=== PATIENT | female | born 1960 | race Caucasian/White ===

== ENCOUNTER 2017-08-18 20:09 | Emergency (ER) | payer OTHER ==
[~2017-08-18] VITALS: Ht 167.6 cm; Wt 98.0 kg
[~2017-08-18 20:09] MED LIST: AMIT10TA6 PO; ATEN25TA PO; DULO30CA2 PO; GLYB5TAB7 PO; HYDR-3326 PO; LEVO112T5 PO; LISI-607 PO; ONDA4TAB5 PO; PANT40SU PO
[2017-08-18 20:29] VITALS: BP 146/76
--- NOTE | 2017-08-18 21:26 | NUR ---
RADIOLOGY AT BEDSIDE FOR R KNEE XRAY.
[2017-08-18] MEDS ORDERED: HYDROCODONE/APAP 10/325MG 1 EA TABLET ONE (21:36)
[2017-08-18] MEDS ORDERED: HYDROCODONE/APAP 10/325MG 1 EA TABLET PO ONE (22:00)
--- NOTE | 2017-08-18 23:10 | NUR ---
PILY BANDAGE APPLIED. PT D/C HOME IN STABLE CONDITION.
== END 2017-08-18 23:13 | disposition home or self-care (01) ==
LOC: ER 20:13
DX: M25.561 Pain in right knee (principal); E11.9 Type 2 diabetes mellitus without complications; I10 Essential (primary) hypertension; Z98.890 Other specified postprocedural states; Z88.6 Allergy status to analgesic agent; Z88.8 Allergy status to other drugs, medicaments and biological substances
CPT/HCPCS: 73564; 99284; A4606; Z7610

== ENCOUNTER 2018-05-16 18:00 | Emergency (ER) | payer OTHER ==
[~2018-05-16] VITALS: Ht 167.6 cm; Wt 95.3 kg
[~2018-05-16 18:00] MED LIST changes: -HYDR-3326 PO; +HYDR-3974 PO
[2018-05-16 18:03] VITALS: BP 116/72
--- NOTE | 2018-05-16 18:11 | NUR ---
TK FROM HOME CC OF LEFT EAR PRESSURE THIS AM , WITH DIFFICULTY OF HEARING , AOX4 , VSS STABLE , NO ACUTE DISTRESS OR SOB AT THIS TIME . DENIES VERTIGO , NAUSEA AND VOMITING , WILL CONTINUE TO MONITOR
--- NOTE | 2018-05-16 18:25 | NUR ---
ANDIE JESSICA AT BEDSIDE EVALUATING THE PATIENT
[2018-05-16] MEDS ORDERED: DOCUSATE SODIUM LIQ 100 MG/10 ML UDC ONE (18:35)
[2018-05-16] MEDS ORDERED: DOCUSATE SODIUM LIQ 100 MG/10 ML UDC XX ONE (19:00)
== END 2018-05-16 19:52 | disposition home or self-care (01) ==
LOC: ER 18:02
DX: H61.23 Impacted cerumen, bilateral (principal); J34.89 Other specified disorders of nose and nasal sinuses; Z88.6 Allergy status to analgesic agent; Z88.8 Allergy status to other drugs, medicaments and biological substances; E11.9 Type 2 diabetes mellitus without complications; I10 Essential (primary) hypertension
CPT/HCPCS: 69209; 99283; A4606; Z7610

== ENCOUNTER 2018-08-13 09:56 | Inpatient (IN) | payer OTHER ==
[~2018-08-13] VITALS: Ht 160 cm; Wt 94.8 kg
--- NOTE | 2018-08-13 10:05 | NUR ---
PRESENTS TO ER C/O CHEST PALPITATIONS X 1 WEEK, WORSENING THIS AM AROUND 0800. STATING SHE BECAME DIAPHORETIC WITH MILD CHEST DISCOMFORT. PATIENT IS A/OX 4 AT THIS TIME. BREATHING EVEN AND UNLABORED. NO SOB, NAD, VITALS STABLE. SAFETY AND COMFORT MEASURES IN PLACE. AWAITING MD ORDERS.
--- NOTE | 2018-08-13 10:10 | NUR ---
NEW IV STARTED ON RAC, 18G. BLOOD DRAWN AND SENT TO LAB.
[2018-08-13 10:29] LABS: RED BLOOD CELL COUNT(AUTO) 4.55 MIL/uL (4.0-5.2)
[2018-08-13 10:32] LABS: BASOPHILS % (AUTO) 0.4 % (0.0-2.0); HEMATOCRIT 38 % (33-45); HEMOGLOBIN 12.5 g/dL (11.5-14.8); LYMPHOCYTES # (AUTO) 2.1 /CMM (0.8-4.8); LYMPHOCYTES % (AUTO) 23.6 % (20.0-44.0); MEAN CORPUSCULAR HGB CONC 33 g/dl (31.0-36.0); MEAN CORPUSCULAR VOLUME 83 fL (82-100); MONOCYTES # (AUTO) 0.5 /CMM (0.1-1.30); MONOCYTES % (AUTO) 5.5 % (2.0-12.0); NEUTROPHILS # (AUTO) 5.9 /CMM (1.8-8.9); NEUTROPHILS % (AUTO) 67.5 % (43.0-81.0); PLATELET COUNT (AUTO) 348 /CMM (150-450); RDW COEFFICIENT OF VARIATION 12.8 (11.5-15.0); WHITE BLOOD COUNT (AUTO) 8.8 K/uL (4.3-11.0)
[2018-08-13 10:34] LABS: CALCIUM, SERUM 7.2 mg/dL (8.5-10.1); CARBON DIOXIDE 32 mmol/L (21-32); CHLORIDE 99 mmol/L (98-107); CREATININE 0.7 mg/dL (0.6-1.3); GLUCOSE 255 mg/dL (74-106); POTASSIUM 3.9 mmol/L (3.5-5.1); SODIUM SERUM 138 mmol/L (136-145); UREA NITROGEN, BLOOD 17 mg/dL (7-18)
[2018-08-13 10:41] LABS: ALANINE AMINOTRANSFERASE 22 U/L (12-78); ALBUMIN 3.9 g/dL (3.4-5.0); ALKALINE PHOSPHATASE 66 U/L (46-116); ASPARTATE AMINOTRANSFERASE 12 U/L (15-37); BILIRUBIN,TOTAL 0.3 mg/dL (0.2-1.0); TOTAL PROTEIN, SERUM 7.3 g/dL (6.4-8.2)
[2018-08-13 10:42] LABS: TROPONIN I < 0.017 ng/mL (0.00-0.056)
[2018-08-13] MEDS ORDERED: ASPIRIN 81 MG TAB.CHEW PO ONE (11:00)
[2018-08-13] MEDS ORDERED: ASPIRIN EC 81 MG TABLET.DR PO ONE (11:01)
[2018-08-13] MEDS ORDERED: AMLO-333 PO (12:21)
[2018-08-13] MEDS ORDERED: INSU100V11 SQ (12:21)
[2018-08-13] MEDS ORDERED: LEVO125T8 PO (12:21)
[2018-08-13] MEDS ORDERED: INSU100I24 SQ (12:21)
[2018-08-13] MEDS ORDERED: HYDR-548 PO (12:21)
[2018-08-13] MEDS ORDERED: GLYB6TAB3 PO (12:21)
[2018-08-13] MEDS ORDERED: AMPH10TA4 PO (12:21)
[2018-08-13] MEDS ORDERED: ASPI-1152 PO (12:21)
--- NOTE | 2018-08-13 12:21 | NUR ---
PT IS ASSIGEND TO [facility] RM#: [id number], DX: CHEST PAIN, AND ACCEPTING: CESAR HANLEY DNP
--- NOTE | 2018-08-13 13:55 | NUR ---
REPORT CALLED TO SOON (CHARGE NURSE0 FOR MONA GOING TO ROOM 110
--- NOTE | 2018-08-13 14:36 | NUR ---
PATIENT TRANSPORTED TO 110 VIA ACLS PROTOCOL. RNANNA TO PROVIDE MONA.
[2018-08-13 14:45] VITALS: BP 113/68
--- NOTE | 2018-08-13 14:45 | NUR ---
COMPUTER SECURITY COORDINATOR NOTE: RECEIVED PATIENT TO ROOM 112-1 AND PATIENT WAS AWAKE, ALERT AND VERBALLY RESPONSIVE. RESPIRATION IS EVEN AND UNLABORED SATURATING 95% IN ROOM AIR. PER PATIENT, SHE HAS (L) CHEST PAIN RADIATING TO HER ABDOMINAL AREA. PATIENT'S DESCRIBED THE PAIN SQUEEZING PAIN 5/10. ON MAGNETIC TESTING TECHNICIAN, SR HR= 71. PATIENT SAID THAT IT IS TOLERABLE PAIN AT THIS TIME. SHE WAS VERBALIZING THAT SHE IS HUNGRY AND LAST MEAL WAS THIS 1200. PATIENT WALKED TO THE BED NOTED WITH STEADY GAIT, SEATED UPRIGHT ON THE BED AND COMPLETE BODY ASSESSMENT WAS DONE. (R) AC 18G WAS IN PLACED, FLUSHED WITH 5ML NS INTACT AND PATENT. BED IN LOW POSITION AND LOCKED AT ALL TIMES. CALL LIGHT WITHIN REACH. NEEDS ANTICIPATED. VITAL SIGN TAKEN. PAGED CESAR HANLEY NP FOR ADMITTING ORDERS AND AWAITING FOR ORDERS.
--- NOTE | 2018-08-13 15:30 | NUR ---
BRAKE TESTER NOTE: PAGED CESAR HANLEY, EARTH AUGER OPERATOR AGAIN TO FOLLOW-UP WITH ADMITTING ORDERS. PER EARTH AUGER OPERATOR, HE WILL PUT IN THE ORDERS. PATIENT MADE AWARE.
[2018-08-13 16:00] VITALS: BP 125/69
--- NOTE | 2018-08-13 17:00 | NUR ---
SEQUINS STRINGER NOTE: CESAR HANLEY, SHEET HANGER WAS PAGED AGAIN FOR ADMITTING ORDERS, PATIENT WAS GETTING FRUSTRATED. PER SHEET HANGER, OK TO HAVE A DIABETIC DIET AND ACCUCHECK ACHS WITH MILD SLIDING SCALE REGULAR INSULIN. ORDER, NOTED AND CARRIED OUT. PATIENT MADE AWARE. AWAITING FOR THE REST OF THE OTHER MD ORDERS.
[2018-08-13] MEDS ORDERED: DEXTROSE 50%-WATER 50 ML DISP.SYRIN IV PRN ×2 (17:30→18:00)
[2018-08-13] MEDS: BLOOD SUGAR DIAGNOSTIC 1 EACH STRIP IN SCH ×2 (17:45→21:30)
[2018-08-13] MEDS ORDERED: INSULIN REGULAR, HUMAN 100 UNIT/ML 3 ML VIAL SQ PRN (18:00)
[2018-08-13] MEDS: INSULIN REGULAR, HUMAN 100 UNIT/ML 3 ML VIAL SQ PRN ×2 (18:00→21:42)
[2018-08-13] MEDS ORDERED: BLOOD SUGAR DIAGNOSTIC 1 EACH STRIP IN SCH (18:00)
[2018-08-13] MEDS ORDERED: Z GUARD REMEDY 2 OZ OINT TP PRN (18:30)
[2018-08-13] MEDS ORDERED: ACETAMINOPHEN 325 MG TABLET PO PRN (18:30)
[2018-08-13] MEDS ORDERED: ONDANSETRON HCL/PF 4 MG/2 ML VIAL IVP PRN (18:30)
[2018-08-13] MEDS ORDERED: ENOXAPARIN SODIUM 40 MG/0.4 ML DISP.SYRIN SQ SCH (18:30)
[2018-08-13] MEDS ORDERED: ZOLPIDEM TARTRATE 5 MG TABLET PO PRN (18:30)
--- NOTE | 2018-08-13 19:30 | NUR ---
NAILING MACHINE OPERATOR OPENING NOTES PATIENT AWAKE, ALERT AND ORIENTED X3. RESPIRATION IS EVEN AND UNLABORED,PT ON ROOM AIR. ON POLLS OR SURVEYS INTERVIEWER, SR HR= 64. RAC 18G IN PLACED, FLUSHING WELL , INTACT AND PATENT. PT COMPLAINS OF BURNING SENSATION IN HER THROAT THAT STARTED AFTER SHE GOT LOVENOX AT 1800 AND VERY ANXIOUS . WILL TEXT TO CESAR. BED IN LOW POSITION AND LOCKED AT ALL TIMES. CALL LIGHT WITHIN REACH. WILL CONTINUE TO MONITOR .
--- NOTE | 2018-08-13 19:45 | NUR ---
ASSOCIATE MEDIA PLANNER NOTE: PATIENT ON STABLE CONDITION. REPORT GIVEN TO PM SHIFT NURSE FOR CONTINUITY OF CARE.
[2018-08-13 20:00] VITALS: BP 146/53
--- NOTE | 2018-08-13 20:33 | NUR ---
ORDER FOR BENADRYL IV 50 MG ONCE PER CESAR HANLEY WAS RECEIVED.
[2018-08-13] MEDS: HYDROCODONE/APAP 10/325MG 1 EA TABLET PO PRN (20:46)
[2018-08-13] MEDS ORDERED: diphenhydrAMINE HCL 50 MG/ML VIAL IV ONE (21:30)
[2018-08-13] MEDS ORDERED: AMITRIPTYLINE HCL 10 MG TABLET PO SCH (22:00)
[2018-08-14] VITALS: BP 135/71
[2018-08-14 04:00] VITALS: BP 133/66
[2018-08-14 05:50] LABS: BASOPHILS % (AUTO) 0.3 % (0.0-2.0); EOSINOPHILS % (AUTO) 2.9 % (0.0-6.0); HEMATOCRIT 37 % (33-45); LYMPHOCYTES # (AUTO) 2.4 /CMM (0.8-4.8); LYMPHOCYTES % (AUTO) 25.9 % (20.0-44.0); MEAN CORPUSCULAR HGB CONC 33 g/dl (31.0-36.0); MEAN CORPUSCULAR VOLUME 85 fL (82-100); MONOCYTES # (AUTO) 0.5 /CMM (0.1-1.30); MONOCYTES % (AUTO) 5.7 % (2.0-12.0); NEUTROPHILS % (AUTO) 65.2 % (43.0-81.0); PLATELET COUNT (AUTO) 339 /CMM (150-450); RDW COEFFICIENT OF VARIATION 13.4 (11.5-15.0); RED BLOOD CELL COUNT(AUTO) 4.31 MIL/uL (4.0-5.2); WHITE BLOOD COUNT (AUTO) 9.2 K/uL (4.3-11.0)
[2018-08-14 06:08] LABS: ALBUMIN 3.6 g/dL (3.4-5.0); BILIRUBIN,TOTAL 0.4 mg/dL (0.2-1.0); CREATININE 0.7 mg/dL (0.6-1.3); MAGNESIUM 2.1 mg/dL (1.8-2.4); PHOSPHORUS 4.3 mg/dL (2.5-4.9); POTASSIUM 3.9 mmol/L (3.5-5.1); TOTAL PROTEIN, SERUM 7.3 g/dL (6.4-8.2)
[2018-08-14 06:18] LABS: THYROID STIMULATING HORMONE 1.405 uIU/mL (0.358-3.74)
--- NOTE | 2018-08-14 06:57 | NUR ---
SALES AND OPERATIONS TRAINEE CLOSING NOTES PATIENT AWAKE, ALERT AND ORIENTED X3. RESPIRATION IS EVEN AND UNLABORED,PT ON ROOM AIR. ON STORE KEEPER, SR HR= 63. RAC 18G IN PLACE, FLUSHING WELL, INTACT AND PATENT.SAFETY PRECAUTIONS IN PLACE , BED IN LOW POSITION AND LOCKED AT ALL TIMES. CALL LIGHT WITHIN REACH. WILL ENDORSE TO NEXT SHIFT FOR MONA.
[2018-08-14] MEDS ORDERED: LEVOTHYROXINE SODIUM 125 MCG TABLET PO SCH (07:30)
[2018-08-14 08:00] VITALS: BP 113/60
--- NOTE | 2018-08-14 08:00 | NUR ---
HAIR DESIGNER OPENING NOTES RECEIVED PATIENT IN STABLE CONDITION. IN NO APPARENT DISTRESS. BEDSIDE RAILS ARE UPX2. BED IS LOCKED AND LOWERED. CALL LIGHT IS WITHIN REACH. IV LINE IS INTACT AND PATENT. WILL CONTINUE TO MONITOR PATIENT.
[2018-08-14] MEDS: BLOOD SUGAR DIAGNOSTIC 1 EACH STRIP IN SCH ×2 (08:32→12:30)
[2018-08-14] MEDS: INSULIN LISPRO/ASPART 100 UNIT/ML CARTRIDGE SQ SCH ×3 (08:34→12:35)
[2018-08-14] MEDS: INSULIN REGULAR, HUMAN 100 UNIT/ML 3 ML VIAL SQ PRN (08:51)
[2018-08-14] MEDS ORDERED: ASPIRIN EC 81 MG TABLET.DR PO SCH (09:00)
[2018-08-14] MEDS ORDERED: ATENOLOL 25 MG TABLET PO SCH (09:00)
[2018-08-14] MEDS ORDERED: VALSARTAN 80 MG TABLET PO SCH (09:00)
[2018-08-14] MEDS ORDERED: AMLODIPINE BESYLATE 10 MG TABLET PO SCH (09:00)
[2018-08-14] MEDS ORDERED: glyBURIDE 5 MG TABLET PO SCH (09:00)
[2018-08-14] MEDS ORDERED: AMPHET ASP/AMPHET/D-AMPHET 10 MG TABLET PO SCH (09:00)
[2018-08-14] MEDS: HYDROCODONE/APAP 10/325MG 1 EA TABLET PO PRN (09:46)
[2018-08-14] MEDS ORDERED: IOHEXOL-350 100 ML VIAL IV ONE (11:03)
[2018-08-14] MEDS ORDERED: IV NS 0.9% 250 ML IV ONE (11:04)
[2018-08-14 12:00] VITALS: BP 111/63
[2018-08-14] MEDS ORDERED: AMPH10TA4 PO (14:58)
--- NOTE | 2018-08-14 16:00 | NUR ---
MS RN CLOSING NOTES PATIENT DISCHARGED IN STABLE CONDITION. IN NO APPARENT DISTRESS. ALL NEEDS WERE MET. EXITCARE PROVIDED TO THE PATIENT. PRESCRIPTION PROVIDED TO THE PATIENT. ID BAND WAS REMOVED. IV LINE WAS REMOVED. PATIENT ESCORTED OUT OF THE FACILITY BY MERISSA VELEZ. BELONGINGS WERE CHECKED AND WITH PATIENT.
== END 2018-08-14 16:00 | disposition home or self-care (01) | DRG 207 ==
LOC: ER 09:57 → TELE1 13:17 → MEDSG1 08-14 12:19
PROVIDERS: ADMIT Nurse Practitioner Acute Care; ATTEND Nurse Practitioner Acute Care
DX: R00.2 Palpitations (principal); E11.42 Type 2 diabetes mellitus with diabetic polyneuropathy; R07.89 Other chest pain; E11.65 Type 2 diabetes mellitus with hyperglycemia; F41.9 Anxiety disorder, unspecified; E66.01 Morbid (severe) obesity due to excess calories; E03.9 Hypothyroidism, unspecified; E78.5 Hyperlipidemia, unspecified; K21.9 Gastro-esophageal reflux disease without esophagitis; Z68.37 Body mass index [BMI] 37.0-37.9, adult; M79.7 Fibromyalgia; K29.70 Gastritis, unspecified, without bleeding; N71.9 Inflammatory disease of uterus, unspecified; Z98.890 Other specified postprocedural states; Z79.899 Other long term (current) drug therapy; Z79.82 Long term (current) use of aspirin; Z79.4 Long term (current) use of insulin; K57.90 Diverticulosis of intestine, part unspecified, without perforation or abscess without bleeding; Z80.9 Family history of malignant neoplasm, unspecified; Z82.49 Family history of ischemic heart disease and other diseases of the circulatory system; T43.625A Adverse effect of amphetamines, initial encounter; Y92.009 Unspecified place in unspecified non-institutional (private) residence as the place of occurrence of the external cause; I10 Essential (primary) hypertension; G89.4 Chronic pain syndrome; M19.90 Unspecified osteoarthritis, unspecified site; M54.5 Low back pain; F11.90 Opioid use, unspecified, uncomplicated
CPT/HCPCS: 36415; 71045-TC; 75574; 80048-TC; 80053-TC; 80061-TC; 80076-TC; 82962-TC; 83540-TC; 83735-TC; 84100-TC; 84443-TC; 84484-TC; 85025-TC; 87081-TC; 93307-TC; A4606; J1200; J1650; J1815; J7050; Q9967; Z7610

== ENCOUNTER 2019-05-13 12:13 | Emergency (ER) | payer OTHER ==
[~2019-05-13] VITALS: Ht 167.6 cm; Wt 99.8 kg
[~2019-05-13 12:13] MED LIST changes: +AMLO-333 PO; +AMPH10TA4 PO; +ASPI-1152 PO; -DULO30CA2 PO; -GLYB5TAB7 PO; +GLYB6TAB3 PO; -HYDR-3974 PO; +HYDR-4354 PO; +INSU100I24 SQ; +INSU100V11 SQ; -LEVO112T5 PO; +LEVO125T8 PO; -LISI-607 PO
--- NOTE | 2019-05-13 12:25 | NUR ---
CAME IN FOR LOWER BACK PAIN AND L LOWER QUADRANT PAIN x 4 DAYS, ALSO C/O URINARY FREQUENCY AND BURNING SENSATION VAGINAL AREA. TO ER BED 16, HOOKED TO MONITOR, CHANGED TO GOWN, PROVIDED W WARM BLANKET, AWAITING MD AGUILAR.
--- NOTE | 2019-05-13 12:28 | NUR ---
MAURILIO PEREZ AT BEDSIDE
[2019-05-13 12:53] LABS: APPEARANCE,URINE Clear (CLEAR); BILIRUBIN,URINE Negative (NEGATIVE); BLOOD, URINE Negative Ery/uL (NEGATIVE); COLOR,URINE Yellow (YELLOW); KETONES,URINE Negative (NEGATIVE); LEUKOCYTE ESTERASE ,URINE Negative (NEGATIVE); NITRITE, URINE Positive (NEGATIVE); PROTEIN,URINE Negative (NEGATIVE); UGLUCOSE Negative (NEGATIVE); UROBILINOGEN,URINE 0.2 EU/dL (0.2)
[2019-05-13] MEDS ORDERED: PHENAZOPYRIDINE HCL 200 MG TABLET ONE (12:59)
[2019-05-13] MEDS ORDERED: HYDROMORPHONE 1 MG/1 ML DISP.SYRIN ONE (12:59)
[2019-05-13] MEDS ORDERED: ONDANSETRON HCL/PF 4 MG/2 ML VIAL ONE (12:59)
[2019-05-13] MEDS ORDERED: IV NS 0.9% 1,000 ML BAG IV ONE (13:00)
[2019-05-13] MEDS ORDERED: PHENAZOPYRIDINE HCL 200 MG TABLET PO ONE (13:00)
[2019-05-13] MEDS ORDERED: HYDROMORPHONE INJ 2 MG/ML DISP.SYRIN IV ONE (13:00)
[2019-05-13] MEDS ORDERED: ONDANSETRON HCL/PF 4 MG/2 ML VIAL IVP ONE (13:00)
[2019-05-13 13:07] LABS: BACTERIA,URINE Few /HPF (None Seen); RBC,URINE 0-2 /HPF (0-2); SQUAMOUS EPITHELIAL CELL,UR Few /HPF (None Seen); WBC,URINE 0-2 /HPF (0-3)
[2019-05-13 13:10] LABS: BASOPHILS % (AUTO) 0.6 % (0.0-2.0); HEMATOCRIT 38 % (33-45); HEMOGLOBIN 12.6 g/dL (11.5-14.8); LYMPHOCYTES # (AUTO) 2.2 /CMM (0.8-4.8); LYMPHOCYTES % (AUTO) 28.7 % (20.0-44.0); MEAN CORPUSCULAR HGB CONC 33 g/dl (31.0-36.0); MEAN CORPUSCULAR VOLUME 86 fL (82-100); MONOCYTES # (AUTO) 0.5 /CMM (0.1-1.30); NEUTROPHILS # (AUTO) 4.7 /CMM (1.8-8.9); NEUTROPHILS % (AUTO) 61.7 % (43.0-81.0); PLATELET COUNT (AUTO) 311 /CMM (150-450); RED BLOOD CELL COUNT(AUTO) 4.39 MIL/uL (4.0-5.2); WHITE BLOOD COUNT (AUTO) 7.7 K/uL (4.3-11.0)
[2019-05-13 13:16] LABS: CALCIUM, SERUM 9.1 mg/dL (8.5-10.1); CREATININE 0.7 mg/dL (0.6-1.3); POTASSIUM 4.4 mmol/L (3.5-5.1)
[2019-05-13 13:25] LABS: ALBUMIN 3.9 g/dL (3.4-5.0); BILIRUBIN,DIRECT 0.1 mg/dL (0.0-0.2); BILIRUBIN,TOTAL 0.3 mg/dL (0.2-1.0); TOTAL PROTEIN, SERUM 7.7 g/dL (6.4-8.2)
--- NOTE | 2019-05-13 13:40 | NUR ---
MAURILIO PEREZ AT BEDSIDE FOR PELVIC EXAM
--- NOTE | 2019-05-13 14:04 | NUR ---
US TECH AT BEDSIDE
[2019-05-13 15:27] VITALS: BP 136/75
--- NOTE | 2019-05-13 15:27 | NUR ---
IV removed. Catheter intact and site benign. Pressure and 4x4 applied to site. No bleeding noted.Patient discharged to home in stable condition. Written and verbal after care instructions given. Patient verbalizes understanding of instruction.
== END 2019-05-13 15:28 | disposition home or self-care (01) ==
LOC: ER 12:13
DX: N89.8 Other specified noninflammatory disorders of vagina (principal); R10.2 Pelvic and perineal pain; R30.0 Dysuria; G89.29 Other chronic pain; F41.9 Anxiety disorder, unspecified; E11.9 Type 2 diabetes mellitus without complications; I25.10 Atherosclerotic heart disease of native coronary artery without angina pectoris; E78.5 Hyperlipidemia, unspecified; I10 Essential (primary) hypertension; E03.9 Hypothyroidism, unspecified; M79.7 Fibromyalgia; Z98.890 Other specified postprocedural states; Z88.8 Allergy status to other drugs, medicaments and biological substances; Z88.6 Allergy status to analgesic agent; Z91.09 Other allergy status, other than to drugs and biological substances; Z79.4 Long term (current) use of insulin; Z79.899 Other long term (current) drug therapy
CPT/HCPCS: 36415; 76770; 76856; 80048; 80076; 81001; 82962 ×2; 85025; 87086; 87210; 96374; 96375; 99284; J1170; J2405; J7030; 81000-TC; 87070-TC

== ENCOUNTER 2020-04-12 14:54 | Emergency (ER) | payer OTHER ==
[~2020-04-12] VITALS: Ht 167.6 cm; Wt 96.6 kg
[~2020-04-12 14:54] MED LIST changes: -AMLO-333 PO; +AMLO-382 PO
[2020-04-12 15:29] LABS: BASOPHILS # (AUTO) 0.1 /CMM (0.0-0.2); BASOPHILS % (AUTO) 0.6 % (0.0-2.0); EOSINOPHILS % (AUTO) 2.9 % (0.0-6.0); HEMATOCRIT 40 % (33-45); HEMOGLOBIN 13.1 g/dL (11.5-14.8); LYMPHOCYTES # (AUTO) 2.9 /CMM (0.8-4.8); LYMPHOCYTES % (AUTO) 33.7 % (20.0-44.0); MEAN CORPUSCULAR HGB CONC 33 g/dl (31.0-36.0); MEAN CORPUSCULAR VOLUME 85 fL (82-100); MONOCYTES # (AUTO) 0.5 /CMM (0.1-1.30); MONOCYTES % (AUTO) 5.3 % (2.0-12.0); NEUTROPHILS # (AUTO) 4.9 /CMM (1.8-8.9); NEUTROPHILS % (AUTO) 57.5 % (43.0-81.0); PLATELET COUNT (AUTO) 359 /CMM (150-450); RED BLOOD CELL COUNT(AUTO) 4.65 MIL/uL (4.0-5.2); WHITE BLOOD COUNT (AUTO) 8.6 K/uL (4.3-11.0)
--- NOTE | 2020-04-12 15:31 | NUR ---
WORSENING SOB, NASAL CONGESTION. SEND BY PMD FOR ELEVATED D DIMER. PT AAOX4, VSS. RR EVEN & UNLABORED. DENIES DIZZINESS, N/V/D, FEVER, ARM/JAW PAIN, UPPER BACK PAIN @ THIS TIME. PLACED ON SECTION FOREST FIRE WARDEN, SR. PT SEEN & EVAL'D BY DR. FOSTER. WILL CONT TO MONITOR.
[2020-04-12 15:48] LABS: ALANINE AMINOTRANSFERASE 22 U/L (12-78); ALBUMIN 4.1 g/dL (3.4-5.0); ALKALINE PHOSPHATASE 63 U/L (46-116); ASPARTATE AMINOTRANSFERASE 14 U/L (15-37); B-TYPE NATRIURETIC PEPTIDE 49 PG/ML (0-125); BILIRUBIN,DIRECT 0.1 mg/dL (0.0-0.2); BILIRUBIN,TOTAL 0.3 mg/dL (0.2-1.0); CALCIUM, SERUM 9.2 mg/dL (8.5-10.1); CARBON DIOXIDE 29 mmol/L (21-32); CHLORIDE 100 mmol/L (98-107); CREATININE 0.7 mg/dL (0.6-1.3); GLUCOSE 253 mg/dL (74-106); POTASSIUM 4.1 mmol/L (3.5-5.1); SODIUM SERUM 137 mmol/L (136-145); TOTAL PROTEIN, SERUM 8.2 g/dL (6.4-8.2); UREA NITROGEN, BLOOD 18 mg/dL (7-18)
[2020-04-12] MEDS ORDERED: IV NS 0.9% 250 ML IV ONE (16:02)
[2020-04-12] MEDS ORDERED: IOHEXOL-350 100 ML VIAL IV ONE (16:02)
--- NOTE | 2020-04-12 18:45 | NUR ---
PT. VERBALIZED UNDERSTANDING OF AFTERCARE INSTRUCTIONS.Patient discharged to home in stable condition. Written and verbal after care instructions given. Patient verbalizes understanding of instruction.
--- NOTE | 2020-04-12 18:45 | NUR ---
IV removed. Catheter intact and site benign. Pressure and 4x4 applied to site. No bleeding noted.
[2020-04-12 18:46] VITALS: BP 110/74
== END 2020-04-12 18:46 | disposition home or self-care (01) ==
LOC: ER 14:59
DX: R06.02 Shortness of breath (principal); I10 Essential (primary) hypertension; E11.9 Type 2 diabetes mellitus without complications; M79.7 Fibromyalgia; Z98.890 Other specified postprocedural states; Z88.8 Allergy status to other drugs, medicaments and biological substances; Z88.6 Allergy status to analgesic agent; Z79.899 Other long term (current) drug therapy; Z79.82 Long term (current) use of aspirin; Z79.4 Long term (current) use of insulin
CPT/HCPCS: 36415; 71045; 71275; 80048; 80076; 83880; 84484; 85025; 93005; 99285; J7050; Q9967

== ENCOUNTER 2020-04-13 17:13 | Emergency (ER) | payer OTHER ==
[~2020-04-13] VITALS: Ht 165.1 cm; Wt 77.1 kg
[2020-04-13 17:17] VITALS: BP 145/88
[2020-04-13] MEDS ORDERED: predniSONE 20 MG TABLET ONE (17:29)
[2020-04-13] MEDS ORDERED: predniSONE 20 MG TABLET PO ONE (17:30)
== END 2020-04-13 17:40 | disposition home or self-care (01) ==
LOC: ER 17:15
DX: H60.92 Unspecified otitis externa, left ear (principal); J30.9 Allergic rhinitis, unspecified; M79.7 Fibromyalgia; I10 Essential (primary) hypertension; E11.9 Type 2 diabetes mellitus without complications; Z98.890 Other specified postprocedural states; Z88.5 Allergy status to narcotic agent; Z88.6 Allergy status to analgesic agent; Z88.8 Allergy status to other drugs, medicaments and biological substances; Z79.899 Other long term (current) drug therapy; Z79.4 Long term (current) use of insulin; Z79.82 Long term (current) use of aspirin
CPT/HCPCS: 99283; J7512

== ENCOUNTER → 2021-04-03 | Emergency (ER) | payer OTHER ==
[~2021-04-03] VITALS: Ht 165.1 cm; Wt 77.1 kg
[~2021-04-03] MED LIST changes: -ASPI-1152 PO; +ASPI-1420 PO; +DOCU-141 PO; +FLUC150T PO; +ONDANSETRON HCL/PF 4 MG/2 ML VIAL ONE; +OXYBUTYNIN CHLORIDE 5 MG TABLET ONE; +POLY17PO4 PO; +SOLI10TA2 PO
--- NOTE | 2021-04-03 00:49 | NUR ---
pt bibself c/o hematuria, abd pain, and nausea. Pt aaox4 breathing evebly and unlabored. Pt states "i have recurrent utis and i think i have a kidney stone". Rt ac 20g initated. blood drawn and sent to lab. Pt attached to monitor. SKin warm, dry, and intact. Pt given blanket and call light within reach
[2021-04-03 01:54] LABS: BILIRUBIN,URINE Negative (NEGATIVE); COLOR,URINE LIGHT YELLOW (YELLOW); LEUKOCYTE ESTERASE ,URINE Negative (NEGATIVE); NITRITE, URINE Negative (NEGATIVE); PH,URINE 5.5 (5.0-8.0); PROTEIN,URINE Negative (NEGATIVE); UGLUCOSE Negative (NEGATIVE); UROBILINOGEN,URINE 0.2 EU/dL (0.2)
[2021-04-03] MEDS: OXYBUTYNIN CHLORIDE 5 MG TABLET PO ONE (02:00)
[2021-04-03] MEDS: ONDANSETRON HCL/PF 4 MG/2 ML VIAL IVP ONE (02:00)
[2021-04-03 02:16] LABS: BASOPHILS % (AUTO) 0.5 % (0.0-2.0); HEMATOCRIT 36 % (33-45); HEMOGLOBIN 11.9 g/dL (11.5-14.8); LYMPHOCYTES # (AUTO) 2.7 /CMM (0.8-4.8); LYMPHOCYTES % (AUTO) 33.5 % (20.0-44.0); MEAN CORPUSCULAR HGB CONC 33 g/dl (31.0-36.0); MEAN CORPUSCULAR VOLUME 85 fL (82-100); MONOCYTES # (AUTO) 0.5 /CMM (0.1-1.30); MONOCYTES % (AUTO) 6.6 % (2.0-12.0); NEUTROPHILS # (AUTO) 4.6 /CMM (1.8-8.9); NEUTROPHILS % (AUTO) 56.4 % (43.0-81.0); PLATELET COUNT (AUTO) 338 /CMM (150-450); RED BLOOD CELL COUNT(AUTO) 4.24 MIL/uL (4.0-5.2); WHITE BLOOD COUNT (AUTO) 8.1 K/uL (4.3-11.0)
[2021-04-03 02:29] LABS: BACTERIA,URINE None seen /HPF (None Seen); RBC,URINE 0-2 /HPF (0-2); WBC,URINE 0-2 /HPF (0-3)
[2021-04-03 02:29] LABS: CALCIUM, SERUM 9.3 mg/dL (8.5-10.1); CREATININE 0.8 mg/dL (0.6-1.3); POTASSIUM 3.9 mmol/L (3.5-5.1)
[2021-04-03 02:30] LABS: MUCUS,URINE Few /LPF (None Seen); SQUAMOUS EPITHELIAL CELL,UR Few /HPF (None Seen); URINE AMORPHOUS URATE Few /HPF (None Seen)
--- NOTE | 2021-04-03 02:43 | NUR ---
Adolfo gama in [facility] - 04/03/21 at 0244 by JUDITH returned from rad
--- NOTE | 2021-04-03 02:43 | NUR ---
PT RETURNED FROM CT
[2021-04-03 02:46] LABS: BILIRUBIN,TOTAL 0.2 mg/dL (0.2-1.0); TOTAL PROTEIN, SERUM 8.1 g/dL (6.4-8.2)
--- NOTE | 2021-04-03 03:35 | NUR ---
Patient discharged to home in stable condition. Written and verbal after care instructions given. Patient verbalizes understanding of instruction. IV removed. Catheter intact and site benign. Pressure and 4x4 applied to site. No bleeding noted. Pt ambulatory with a steady gait
[2021-04-03 03:44] VITALS: BP 130/75
== END | disposition home or self-care (01) ==
LOC: ER 00:51
DX: N32.81 Overactive bladder (principal); K59.00 Constipation, unspecified; B37.9 Candidiasis, unspecified; K80.20 Calculus of gallbladder without cholecystitis without obstruction; M79.7 Fibromyalgia; I10 Essential (primary) hypertension; E11.9 Type 2 diabetes mellitus without complications; Z98.890 Other specified postprocedural states; Z88.8 Allergy status to other drugs, medicaments and biological substances; Z88.6 Allergy status to analgesic agent; Z79.899 Other long term (current) drug therapy; Z79.82 Long term (current) use of aspirin; Z79.4 Long term (current) use of insulin
CPT/HCPCS: 36415; 74176; 80048; 80076; 81001; 83690; 85025; 96374; 99284; J2405

== ENCOUNTER 2021-06-05 00:06 | Emergency (ER) | payer OTHER ==
[~2021-06-05] VITALS: Ht 167.6 cm; Wt 95.7 kg
[~2021-06-05 00:06] MED LIST changes: -ONDANSETRON HCL/PF 4 MG/2 ML VIAL ONE; -OXYBUTYNIN CHLORIDE 5 MG TABLET ONE
--- NOTE | 2021-06-05 01:45 | NUR ---
PATIENT BIBSELF C/O NECK PAIN FROM PAST TOOTH INFECTION, FROM EARLY MAY. PATIENT STATED "FEELS LIKES SOMEONE IS CHOKING ME. PATIENT IS A/O X 4, RR EVEN AND UNLABORED, NO SIGNS OF SOB NOTED. PATIENT CONNCETED TO SEISMIC ENGINEER.
[2021-06-05 01:59] LABS: BASOPHILS # (AUTO) 0.1 K/uL (0.0-0.2); BASOPHILS % (AUTO) 1.2 % (0.0-2.0); EOSINOPHILS % (AUTO) 3.3 % (0.0-6.0); HEMATOCRIT 40 % (33-45); LYMPHOCYTES # (AUTO) 3.5 K/uL (0.8-4.8); LYMPHOCYTES % (AUTO) 30.8 % (20.0-44.0); MEAN CORPUSCULAR HGB CONC 33 g/dl (31.0-36.0); MEAN CORPUSCULAR VOLUME 85 fL (82-100); MONOCYTES # (AUTO) 0.6 K/uL (0.1-1.30); MONOCYTES % (AUTO) 5.6 % (2.0-12.0); NEUTROPHILS # (AUTO) 6.7 K/uL (1.8-8.9); NEUTROPHILS % (AUTO) 59.1 % (43.0-81.0); PLATELET COUNT (AUTO) 434 K/uL (150-450); RED BLOOD CELL COUNT(AUTO) 4.69 MIL/uL (4.0-5.2); WHITE BLOOD COUNT (AUTO) 11.4 K/uL (4.3-11.0)
--- NOTE | 2021-06-05 02:04 | NUR ---
COVID SWAB COLLECTED AND SENT TO LAB
[2021-06-05] MEDS ORDERED: IOHEXOL-300 100 ML VIAL IV ONE (02:15)
[2021-06-05] MEDS ORDERED: IV NS 0.9% 250 ML IV ONE (02:15)
[2021-06-05 02:19] LABS: CALCIUM, SERUM 9.5 mg/dL (8.5-10.1); CREATININE 0.8 mg/dL (0.6-1.3); POTASSIUM 4.4 mmol/L (3.5-5.1)
--- NOTE | 2021-06-05 02:45 | NUR ---
PATIENT RETURN FROM CT
[2021-06-05] MEDS ORDERED: DOXY-326 PO (04:45)
--- NOTE | 2021-06-05 05:03 | NUR ---
Patient discharged to home in stable condition. RX and Written and verbal after care instructions given. Patient verbalizes understanding of instruction.
[2021-06-05 05:04] VITALS: BP 134/71
== END 2021-06-05 05:05 | disposition home or self-care (01) ==
LOC: ER 00:07
DX: K11.20 Sialoadenitis, unspecified (principal); R59.0 Localized enlarged lymph nodes; Z20.822 Contact with and (suspected) exposure to COVID-19; I10 Essential (primary) hypertension; M79.7 Fibromyalgia; Z88.6 Allergy status to analgesic agent; Z88.1 Allergy status to other antibiotic agents; Z88.5 Allergy status to narcotic agent; E11.9 Type 2 diabetes mellitus without complications; Z79.4 Long term (current) use of insulin; Z79.82 Long term (current) use of aspirin; Z79.899 Other long term (current) drug therapy
CPT/HCPCS: 36415; 70491; 80048; 85025; 87426; 99285; C9803; J7050; Q9967